=== PATIENT | female | born 1990 | race Caucasian/White ===

== ENCOUNTER 2023-12-30 20:24 | Emergency (ER) | payer MEDICAID ==
[~2023-12-30] VITALS: Ht 162.6 cm; Wt 75.0 kg
[2023-12-30 20:29] VITALS: TEMP 97.7
[2023-12-30 23:12] VITALS: BP 130/95; PULSE 65; RESP 16; O2SAT 100
[2023-12-31] MEDS ORDERED: HYDR25SU48 RC (00:38)
[2023-12-31] MEDS ORDERED: LIDO30CR TOP (00:38)
[2023-12-31] MEDS ORDERED: HYDR-3965 PO (00:39)
[2023-12-31] MEDS ORDERED: DOCU100C42 PO (00:39)
[2023-12-31] MEDS: LIDOcaine 2% Viscous 15ml cup MM ONE (00:51)
== END 2023-12-31 00:52 | disposition home or self-care (01) ==
LOC: ER 20:25
DX: K64.8 Other hemorrhoids (principal); Z79.899 Other long term (current) drug therapy
CPT/HCPCS: 99283